=== PATIENT | male | born 1990 | race Caucasian/White ===

== ENCOUNTER 2020-07-06 22:19 | Emergency (ER) | payer BC ==
[2020-07-06] MEDS ORDERED: Sodium Chloride 0.9% 1000 ML 1,000 ML IV STA (22:42)
[2020-07-06] MEDS ORDERED: Zofran 4 MG/2 ML VIAL ONE (22:45)
[2020-07-06] MEDS ORDERED: Sodium Chloride 0.9% 1000 ML 1,000 ML ONE (22:45)
[2020-07-06] MEDS ORDERED: Zofran 4 MG/2 ML VIAL IV ONE (22:46)
[2020-07-06 22:53] LABS: Absolute Neutrophil Ct (ANC) 6.99 (1.4-6.9); BASOPHIL % 0.4 % (0.0-0.4); Basophil (Absolute #) 0.04 (0-0.4); Eosinophil % 2.4 % (0.00-5.0); Eosinophil (Absolute #) 0.26 (0-0.5); Hematocrit 44.4 % (42-50); Hemoglobin 15.1 gm/dl (12.5-18.0); Lymphocytes % 26.4 % (24.0-44.0); Mean Cell Volume 89.9 fl (78-100); Mean Corpuscular Hemoglobin 30.6 pg (26-32); Mean Platelet Volume 9.2 fl (7.5-11.0); Monocyte (Absolute #) 0.78 (0.0-1.3); Monocytes % 7.1 % (0.0-12.0); Neutrophil % 63.7 % (36.0-66.0); Platelet Count 206 K/mm3 (150-450); Red Blood Count 4.94 M/mm3 (4.1-5.6); Red Cell Distribution Width 12.7 % (11.5-14.0)
[2020-07-06 22:57] LABS: ALBUMIN 4.9 g/dL (3.5-5.0); ALKALINE PHOSPHATASE 59 U/L (38-126); ANION GAP 12.8 MEQ/L (5-15); BLOOD UREA NITROGEN 16 mg/dL (9-20); CHLORIDE 104 mmol/L (98-107); Calcium 9.8 mg/dL (8.4-10.2); Carbon Dioxide 24 mmol/L (22-30); Creatinine 1 0.86 mg/dL (0.66-1.25); EST GLOMERULAR FILTRATION RATE > 60.0 ML/MIN; Glucose 101 mg/dL (74-106); Potassium 4.3 mmol/L (3.5-5.1); SGOT/AST 29 U/L (17-59); SGPT/ALT 28 U/L (0-50); SODIUM 136 mmol/L (137-145)
[2020-07-06 22:58] LABS: ETHYL ALCOHOL < 10 mg/dL (0-10)
[2020-07-06 23:04] LABS: Appearance CLEAR (CLEAR); Bilirubin NEGATIVE (NEGATIVE); Blood NEGATIVE Ery/ul (0-5); Glucose NEGATIVE (NEGATIVE); Ketones NEGATIVE (NEGATIVE); Leukocyte Esterase NEGATIVE (NEGATIVE); Mucus SLIGHT /HPF (NEGATIVE); Nitrite NEGATIVE (NEGATIVE); Protein,Urine Dip NEGATIVE (Negative); Specific Gravity 1.019 (1.005-1.025); Urobilinogen 2 mg/dL (0-1)
[2020-07-06 23:07] LABS: Bacteria NONE SEEN /HPF (NEGATIVE); RBC NONE SEEN /HPF (0-2)
[2020-07-06 23:17] LABS: Amphetamine,Urine NEGATIVE (NEGATIVE); Barbiturate,Urine NEGATIVE (NEGATIVE); Benzodiazepine,Urine NEGATIVE (NEGATIVE); Cocaine,Urine NEGATIVE (NEGATIVE); Methadone,Urine NEGATIVE (NEGATIVE); Opiate,Urine NEGATIVE (NEGATIVE); PCP,Urine NEGATIVE (NEGATIVE); THC,Urine NEGATIVE (NEGATIVE)
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
[2020-07-07 00:11] VITALS: BP 110/59; PULSE 52; O2SAT 97
--- NOTE | 2020-07-07 07:55 | XRAY ---
Indication: Syncope. Comparison: None Portable chest demonstrates normal heart, lungs, and bony thorax.
== END 2020-07-07 00:20 | disposition home or self-care (01) ==
LOC: ED 22:19
DX: R55 Syncope and collapse (principal)
CPT/HCPCS: 36000; 36415; 71045; 80053; 80307; 81001; 82962; 85025; 85379; 93005; 93041; 96360; 96374; 99284; J2405; G0480